=== PATIENT | male | born 1960 ===

== ENCOUNTER 2018-12-26 05:41 | Emergency (ER) | payer OTHER ==
--- NOTE | 2018-12-26 05:43 | ER Report ---
History and Physical Time Seen By MD: 05:43 (BERNARDA ALLEN MD) Time Seen By MD: 07:44 (ANTONIETA VILLANUEVA DO) HPI/ROS CHIEF COMPLAINT: Shortness of breath with exertion HISTORY OF PRESENT ILLNESS: This is an 58-year-old male. 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 Was at the [employer] truck stop, and when walking into the store this morning from his truck he became very short of breath and difficulty walking. When he got in to the truck stop he has some to call EMS. EMS arrived and he was feeling a little bit better. He denied having any chest pain but just extreme shortness of breath with exertion. He denies any fevers. No coughing or recent illness. He has had multiple cardiac stents, the most recent one was January 2018. Denies having any nausea or vomiting. (BERNARDA ALLEN MD) HPI/ROS Please see Dr. Allen's note (ANTONIETA VILLANUEVA DO) Allergies: Coded Allergies: lisinopril (Verified Adverse Reaction, Mild, RASH, 12/26/18) Past Medical/Surgical History History of [place], hypertension, hyperlipidemia. 6 stents placed, last was done in January 2018. Also with history of cholecystectomy. (BERNARDA ALLEN MD) Reviewed Nurses Notes: Yes (BERNARDA ALLEN MD) Constitutional Vital Sign - Last 24 Hours 12/26/18 12/26/18 12/26/18 12/26/18 05:43 07:00 07:30 08:00 Temp 98.4 Pulse 77 70 70 67 Resp 17 34 12 13 B/P (MAP) 117/70 111/61 (78) 110/61 (77) 112/70 (84) Pulse Ox 100 96 94 95 O2 Delivery Room Air 12/26/18 08:30 Pulse 71 Resp 11 B/P (MAP) 115/75 (88) Pulse Ox 93 (ANTONIETA VILLANUEVA DO) Physical Exam General Appearance: The patient is alert. No acute distress. Non-toxic in appearance. Eyes: Pupils are equal, round. No pallor, injection or icterus. ENT: Mucous membranes are moist. Normal oral mucosa. Posterior oropharynx is nor mal. Respiratory: Lungs are clear to auscultation. Cardiovascular: Regular rate and rhythm. No murmurs, gallops or rubs. Normal capillary refill. Gastrointestinal: Abdomen is soft and non tender. Nondistended. Normal active bowel sounds. Neurological: Alert and oriented x3. No focal neurologic deficits Skin: Warm and dry. Musculoskeletal: No reproducible pain with palpation. DIFFERENTIAL DIAGNOSIS: After history and physical exam, differential diagnosis was considered for shortness of breath including but not limited to pulmonary infectious process, acute coronary process, altitude related illness, pulmonary embolus and congestive heart failure. (BERNARDA ALLEN MD) Physical Exam Please see Dr. Allen note (ANTONIETA VILLANUEVA DO) Medical Decision Making Data Points Result Diagram: 12/26/18 0634 12/26/18 0634 Laboratory Hematology Test 12/26/18 06:34 12/26/18 07:12 12/26/18 09:26 Red Blood Count 5.42 M/uL (4.00-5.60) Mean Corpuscular Volume 84.1 fL (80.0-96.0) Mean Corpuscular Hemoglobin 28.4 pg (26.0-33.0) Mean Corpuscular Hemoglobin Concent 33.8 g/dL (32.0-36.0) Red Cell Distribution Width 14.0 % (11.5-14.5) Mean Platelet Volume 9.8 fL (7.2-11.1) Neutrophils (%) (Auto) 71.3 % (39.4-72.5) Lymphocytes (%) (Auto) 19.5 % (17.6-49.6) Monocytes (%) (Auto) 6.6 % (4.1-12.4) Eosinophils (%) (Auto) 1.9 % (0.4-6.7) Basophils (%) (Auto) 0.7 % (0.3-1.4) Nucleated RBC Relative Count (auto) 0.0 /100WBC Neutrophils # (Auto) 6.2 K/uL (2.0-7.4) Lymphocytes # (Auto) 1.7 K/uL (1.3-3.6) Monocytes # (Auto) 0.6 K/uL (0.3-1.0) Eosinophils # (Auto) 0.2 K/uL (0.0-0.5) Basophils # (Auto) 0.1 K/uL (0.0-0.1) Nucleated RBC Absolute Count (auto) 0.00 K/uL Prothrombin Time 12.4 seconds (12.0-14.4) Prothromb Time International Ratio 0.93 Activated Partial Thromboplast Time 39 seconds (23-35) D-Dimer Quantitative (PE/DVT) < 0.27 ug/ml (0-0.50) Sodium Level 139 mmol/L (137-145) Potassium Level 3.9 mmol/L (3.5-5.0) Chloride Level 106 mmol/L (98-107) Carbon Dioxide Level 27 mmol/L (22-30) Blood Urea Nitrogen 18 mg/dl (9-21) Creatinine 0.80 mg/dl (0.66-1.25) Glomerular Filtration Rate Calc > 60.0 Random Glucose 120 mg/dl (75-110) Calcium Level 9.0 mg/dl (8.4-10.2) Total Bilirubin 0.2 mg/dl (0.2-1.3) Aspartate Amino Transf (AST/SGOT) 23 U/L (0-35) Alanine Aminotransferase (ALT/SGPT) 23 U/L (0-56) Alkaline Phosphatase 66 U/L (0-126) B-Type Natriuretic Peptide 6 pg/ml (0-100) Total Protein 7.5 g/dl (6.3-8.2) Albumin 4.3 g/dl (3.5-5.0) Carboxyhemoglobin 3.8 % (< 5.0) Troponin I < 0.012 ng/ml Chemistry Test 12/26/18 06:34 12/26/18 07:12 12/26/18 09:26 White Blood Count 8.7 k/uL (4.5-11.0) Red Blood Count 5.42 M/uL (4.00-5.60) Hemoglobin 15.4 g/dL (14.0-18.0) Hematocrit 45.6 % (42.0-52.0) Mean Corpuscular Volume 84.1 fL (80.0-96.0) Mean Corpuscular Hemoglobin 28.4 pg (26.0-33.0) Mean Corpuscular Hemoglobin Concent 33.8 g/dL (32.0-36.0) Red Cell Distribution Width 14.0 % (11.5-14.5) Platelet Count 176 K/uL (150-450) Mean Platelet Volume 9.8 fL (7.2-11.1) Neutrophils (%) (Auto) 71.3 % (39.4-72.5) Lymphocytes (%) (Auto) 19.5 % (17.6-49.6) Monocytes (%) (Auto) 6.6 % (4.1-12.4) Eosinophils (%) (Auto) 1.9 % (0.4-6.7) Basophils (%) (Auto) 0.7 % (0.3-1.4) Nucleated RBC Relative Count (auto) 0.0 /100WBC Neutrophils # (Auto) 6.2 K/uL (2.0-7.4) Lymphocytes # (Auto) 1.7 K/uL (1.3-3.6) Monocytes # (Auto) 0.6 K/uL (0.3-1.0) Eosinophils # (Auto) 0.2 K/uL (0.0-0.5) Basophils # (Auto) 0.1 K/uL (0.0-0.1) Nucleated RBC Absolute Count (auto) 0.00 K/uL Prothrombin Time 12.4 seconds (12.0-14.4) Prothromb Time International Ratio 0.93 Activated Partial Thromboplast Time 39 seconds (23-35) D-Dimer Quantitative (PE/DVT) < 0.27 ug/ml (0-0.50) Glomerular Filtration Rate Calc > 60.0 Calcium Level 9.0 mg/dl (8.4-10.2) Total Bilirubin 0.2 mg/dl (0.2-1.3) Aspartate Amino Transf (AST/SGOT) 23 U/L (0-35) Alanine Aminotransferase (ALT/SGPT) 23 U/L (0-56) Alkaline Phosphatase 66 U/L (0-126) B-Type Natriuretic Peptide 6 pg/ml (0-100) Total Protein 7.5 g/dl (6.3-8.2) Albumin 4.3 g/dl (3.5-5.0) Carboxyhemoglobin 3.8 % (< 5.0) Troponin I < 0.012 ng/ml Coagulation Test 12/26/18 06:34 Prothrombin Time 12.4 seconds Prothromb Time International Ratio 0.93 Activated Partial Thromboplast Time 39 seconds D-Dimer Quantitative (PE/DVT) < 0.27 ug/ml (ANTONIETA VILLANUEVA DO) EKG/Imaging EKG Interpretation 12 lead EKG: Rhythm: Normal sinus rhythm, rate 70 to [place]: normal QRS: normal ST segments: normal (BERNARDA ALLEN MD) Imaging PATIENT NAME: Andra Bernard : 1960 MR: [id number] V: [id number] EXAM DATE: [id number] ORDERING PHYSICIAN: BERNARDA ALLEN TECHNOLOGIST: Location: [facility] Patient: Andra Bernard : 1960 Visit/Account:[id number] Date of Sevice: 12/26/2018 TWO VIEW CHEST 12/26/2018 5:54 AM. INDICATION: Chest pain. COMPARISON: None. FINDINGS: Lungs are well-expanded. The lungs are clear. No pneumothorax or pleural effusion. Heart size is normal. Coronary artery stent in place. IMPRESSION: No acute abnormality. (ANTONIETA VILLANUEVA DO) ED Course/Re-evaluation ED Course I assumed patient care from Dr. Allen at shift change at 7:00. Patient reportedly started having extreme shortness breath. Patient's 2nd troponin was found to be negative. I reviewed the patient's other labs which were also unremarkable including a negative d-dimer, no leukocytosis, no acute electrolyte abnormalities. Carboxyhemoglobin was normal. Chest x-ray was unremarkable. Recommend close PCP follow-up, return precautions provided. Patient was hemody namically stable at time of discharge. Decision to Disposition Date: December 26, 2018 Decision to Disposition Time: 10:09 (ANTONIETA VILLANUEVA DO) Depart Departure Latest Vital Signs Vital Signs Date Time Temp Pulse Resp B/P (MAP) Pulse Ox O2 Delivery O2 Flow Rate FiO2 12/26/18 08:30 71 11 115/75 (88) 93 12/26/18 05:43 98.4 Room Air (ANTONIETA VILLANUEVA DO) Impression: Primary Impression: Shortness of breath Condition: Improved Disposition: HOME OR SELF-CARE Patient Instructions: Dyspnea (GEN) Additional Instructions: Please take all of your medications as prescribed. Please follow up closely with your primary care provider in the next 1-2 days. At this time we do not see signs of bacterial infection of the lungs, fluid on the lungs, clot in the lungs, cardiac damage. Please return promptly if you develop fevers, chills, worsening shortness breath, chest pains, nausea, vomiting. BERNARDA ALLEN MD December 26, 2018 05:43 ANTONIETA VILLANUEVA DO December 26, 2018 07:47
[2018-12-26] MEDS ORDERED: ASPIRIN 81 MG CHEW PO ONE (05:55)
--- NOTE | 2018-12-26 06:21 | EKG ---
FACILITY: PATIENT NAME: JUDY VILLAGOMEZ : [id number] MR: [id number] V: [id number] EXAM DATE: ORDERING PHYSICIAN: BERNARDA CULP TECHNOLOGIST: JERSEY Chery Reason : SOB Blood Pressure : / mmHG Vent. Rate : 072 BPM Atrial Rate : 072 BPM P-R Int : 188 ms QRS Dur : 094 ms QT Int : 376 ms P-R-T Axes : 065 052 036 degrees QTc Int : 411 ms Normal sinus rhythm Normal ECG No previous ECGs available Confirmed by BARB MONTERO ([id number]) on 12/26/2018 6:26:49 AM Referred By: Confirmed By:BARB MONTERO
[2018-12-26 06:45] LABS: PLATELET COUNT, AUTOMATED 176 K/uL (150-450)
--- NOTE | 2018-12-26 07:11 | RADIOLOGY IMAGING REPORT ---
FACILITY: [facility] PATIENT NAME: Andra Bernard : 1960 MR: [id number] V: [id number] EXAM DATE: ORDERING PHYSICIAN: BERNARDA CULP TECHNOLOGIST: Location: [facility] Patient: Andra Bernard : 1960 Visit/Account:[id number] Date of Sevice: 12/26/2018 TWO VIEW CHEST 12/26/2018 5:54 AM. INDICATION: Chest pain. COMPARISON: None. FINDINGS: Lungs are well-expanded. The lungs are clear. No pneumothorax or pleural effusion. Heart size is normal. Coronary artery stent in place. IMPRESSION: No acute abnormality. Report Dictated By: Alex Mccloud MD at 12/26/2018 7:06 AM Report E-Signed By: Alex Mccloud MD at 12/26/2018 7:07 AM WSN:[id number]
[2018-12-26 08:02] LABS: INR 0.93
[2018-12-26 10:00] VITALS: BP 100/46
== END 2018-12-26 10:21 | disposition home or self-care (01) ==
LOC: ER 05:46
DX: R06.02 Shortness of breath (principal)
CPT/HCPCS: 71046; 82040; 82247; 82310; 82374; 82375; 82435; 82565; 82947; 83880; 84075; 84132; 84155; 84295; 84450; 84460; 84484; 84520; 85025; 85379; 85610; 85730; 93005; 99284

== ENCOUNTER → 2018-12-26 | Outpatient (CLI) | payer OTHER | LOC: AMB 05:08 | PROVIDERS: ATTEND Nurse Practitioner | DX: R06.02 Shortness of breath (principal) | CPT/HCPCS: A0425; A0427 ==